=== PATIENT | male | born 1985 | race Caucasian/White ===

== ENCOUNTER 2025-04-22 17:21 | Emergency (ER) | payer OTHER ==
[~2025-04-22] VITALS: Ht 185.4 cm; Wt 100.0 kg
[2025-04-22 17:46] VITALS: BP 119/88; PULSE 123; RESP 14; TEMP 38.4; O2SAT 97; O2SAT 98
[2025-04-22 19:12] LABS: INFLUENZA TYPE A Presumptive Negative (Pres. Neg.); INFLUENZA TYPE B Presumptive Negative (Pres. Neg.)
[2025-04-22 19:13] LABS: RESPIRATORY SYNCYTIAL VIRUS Not Detected (Not Detectd)
== END 2025-04-22 19:40 | disposition home or self-care (01) ==
LOC: ER 17:21
DX: B34.9 Viral infection, unspecified (principal); Z75.3 Unavailability and inaccessibility of health-care facilities; Z20.822 Contact with and (suspected) exposure to COVID-19
CPT/HCPCS: 71045; 87420; 87426; 87804; 99284